=== PATIENT | female | born 1980 | race Caucasian/White ===

== ENCOUNTER → 2020-01-15 15:29 | Outpatient (CLI) | payer OTHER, SELFPAY ==
[2020-01-15 17:21] LABS: Coronavirus 19 IgG Antibody Negative (Negative); Coronavirus 19 IgM Antibody Negative (Negative)
== END ==
PROVIDERS: Visit Provider Clinical Nurse Specialist Family Health
DX: R50.9 Fever, unspecified (principal)
CPT/HCPCS: 36415; 86328